=== PATIENT | female | born 1990 | race American Indian/Alaskan Native ===

== ENCOUNTER 2020-07-05 10:52 | Emergency (ER) | payer BC ==
[2020-07-05 11:07] VITALS: BP 119/83; PULSE 82; TEMP 99.2; BMI 23.3
[2020-07-05] MEDS ORDERED: ACETAMINOPHEN 325 MG TABLET (FP) PO ONE (11:16)
[2020-07-05] MEDS ORDERED: ACETAMINOPHEN 325 MG TABLET (FP) ONE (11:18)
--- NOTE | 2020-07-05 11:21 | PDOC ---
History of Present Illness - General Chief Complaint: Weakness Stated Complaint: RIGHT CALF WEAKNESS AND CRAMP Time Seen by Provider: 07/05/20 10:55 History Source: Patient Exam Limitations: No Limitations - History of Present Illness Initial Comments: 07/05/20 11:16 30-year-old female currently on Clomid for fertility treatment approximately 1 month here today complaining of right calf pain. Patient states that she has been noticing periodic spasms in her right calf also felt when she was driving a car it seemed to tire denies any chest pain or shortness of breath no fevers no chills no trauma no other current complaints called her OB certified medical asst who suggested she come to the ER for a Doppler to make sure there is no blood clot no history of previous blood clots no other current complaints Past History - Medical History Allergies/Adverse Reactions: Allergies Allergy/AdvReac Type Severity Reaction Status Date / Time No Known Allergies Allergy Unverified 07/05/20 10:55 Home Medications: Ambulatory Orders Clomiphene Citrate 50 mg PO ASDIR 07/05/20 COPD: No Other medical history: DENIES - Surgical History Appendectomy: Yes - Reproductive History Is Patient Now?: No - Psycho-Social/Smoking History Smoking History: Never smoked Information on smoking cessation initiated: No - Substance Abuse Hx (Audit-C & DAST Scrn) How often the patient has a drink containing alcohol: Never Score: In Men: 4 or > Positive; In Women: 3 or > Positive: 0 Screen Result (Pos requires Nsg. Audit-10AR): Negative In the last yr the pt used illegal drug/Rx for NonMed reason: No Score: Yes response is considered Positive: 0 Screen Result (Positive result requires Nsg. DAST-10): Negative Review of Systems - Review of Systems Constitutional: No: Chills Respiratory: No: Cough, Orthopnea, Shortness of Breath Cardiac (ROS): No: Chest Pain Musculoskeletal: Yes: Muscle Pain Integumentary: No: Bruising, Change in Color Neurological: No: Headache, Numbness, Paresthesia All Other Systems: Reviewed and Negative *Physical Exam - Vital Signs Last Vital Signs Temp Pulse Resp BP Pulse Ox 99.2 F 82 16 119/83 100 07/05/20 10:54 07/05/20 10:54 07/05/20 10:54 07/05/20 10:54 07/05/20 10:54 - Physical Exam 07/05/20 11:19 Awake alert no acute distress lungs are clear bilaterally heart is regular with any murmurs rubs or gallops abdomen is soft and nontender extremities are warm well perfused there is some right posterior calf tenderness no noted phlebitis or varicosities. Strength testing of bilateral lower extremities is 5 out of 5 with hip flexion extension knee flexion extension dorsiflexion plantarflexion. Sensation is intact. Patient has no palpable midline spinal tenderness. ED Treatment Course - LABORATORY CBC & Chemistry Diagram: 07/05/20 11:29 07/05/20 11:16 - RADIOLOGY Radiology Studies Ordered: Category Date Time Status DUPLEX VASCUL US-1 LEG [US] Stat Ultrasound 07/05/20 11:16 Ordered Medical Decision Making - Medical Decision Making 07/05/20 11:20 30-year-old female currently on Clomid here with right calf pain differential includes muscle spasm secondary to dehydration electrolyte instability DVT versus muscle strain. Plan Tylenol for her pain basic test Doppler and basic labs 07/05/20 12:46 Patient's Doppler studies negative for DVT electrolytes are normal labs unremarkable UCG is negative. Will discharge home told to take Motrin for her pain encourage hydration follow-up with her primary care doctor return for any problems or concerns should she have persistent symptoms in 1 week recommend repeat ultrasound Discharge - Discharge Information Problems reviewed: Yes Clinical Impression/Diagnosis: Muscle cramp Condition: Improved Disposition: HOME - Admission No - Follow up/Referral Referrals: Rich Saenz MD [Primary Care Provider] - - Patient Discharge Instructions Patient Printed Discharge Instructions: DI for Muscle Spasm Additional Instructions: Your ultrasound is negative for any acute blood clot. Your labs including basic blood counts and electrolyte in addition to liver function are normal today. You should follow-up with your regular doctor. For your pain in your calf you can take ibuprofen 400 mg every 8 hours. Your test is negative be sure to drink plenty of water and as this can contribute to muscle cramping. Return for any sudden onset weakness or any concerns. If you have persistent pain beyond 1 week he may consider repeat ultrasound at that time - Post Discharge Activity
[2020-07-05 11:34] LABS: BASO % 0.9 % (0-2.0); HEMATOCRIT 39.5 % (32.4-45.2); HEMOGLOBIN 13.5 GM/dl (10.7-15.3); LYMPH % 41.9 % (8-40); MCH 30.6 pg (25.7-33.7); MCHC 34.2 g/dl (32.0-36.0); MEAN CELL VOLUME 89.6 fl (80-96); MEAN PLT VOLUME 8.6 fl (7.5-11.1); MONO % 7.2 % (3.8-10.2); PLATELET COUNT 242 K/MM3 (134-434); RBC 4.41 M/mm3 (3.60-5.2); RDW 12.7 % (11.6-15.6); WHITE BLOOD COUNT 5.9 K/mm3 (4.0-10.8)
[2020-07-05 11:59] LABS: ALBUMIN 3.9 g/dl (3.4-5.0); BILIRUBIN,TOTAL 0.5 mg/dl (0.2-1); CALCIUM 8.5 mg/dl (8.5-10); CREATININE 0.6 mg/dl (0.55-1.3); POTASSIUM 3.7 mmol/L (3.5-5.1); TOT PROT 6.8 g/dl (6.4-8.2)
== END 2020-07-05 13:16 | disposition home or self-care (01) ==
LOC: FER 10:52
DX: R25.2 Cramp and spasm (principal)
CPT/HCPCS: 36415; 80053; 84703; 85025; 93971-TC; 99283-25

== ENCOUNTER 2021-12-05 12:43 | Emergency (ER) | payer OTHER ==
[2021-12-05 13:14] VITALS: BP 114/69; PULSE 72; TEMP 99.1; BMI 23.8
[2021-12-05] MEDS ORDERED: ACETAMINOPHEN 1000 MG/100 ML BAG IVPB ONE (14:05)
[2021-12-05] MEDS ORDERED: SODIUM CHLORIDE 0.9% 500 ML INFUS.BAG IV ONE (14:05)
[2021-12-05] MEDS ORDERED: METOCLOPRAMIDE HCL INJECTION 10 MG/2 ML VIAL IVPB ONE (14:05)
[2021-12-05] MEDS ORDERED: METOCLOPRAMIDE HCL INJECTION 10 MG/2 ML VIAL ONE (14:41)
[2021-12-05] MEDS ORDERED: ACETAMINOPHEN INJECTION 100 ML IVPB ONE (14:41)
== END 2021-12-05 19:22 | disposition home or self-care (01) ==
LOC: FER 12:43
PROC: 3E0333Z Introduction of Anti-inflammatory into Peripheral Vein, Percutaneous Approach (ICD-10-PCS; principal; 2021-12-05)
PROC: 3E033GC Introduction of Other Therapeutic Substance into Peripheral Vein, Percutaneous Approach (ICD-10-PCS; 2021-12-05)
DX: O26.891 Other specified pregnancy related conditions, first trimester (principal); R51.9 Headache, unspecified; Z3A.10 10 weeks gestation of pregnancy
CPT/HCPCS: 81003; 99284-25

== ENCOUNTER 2022-06-11 18:05 | Inpatient (IN) | payer OTHER, BC ==
[2022-06-11] MEDS ORDERED: DEXTROSE 5%-LACTATED RINGERS 1,000 ML IV SCH ×2 (19:00→20:00)
[2022-06-11] MEDS: DEXTROSE 5%-LACTATED RINGERS 1,000 ML IV SCH (23:00)
[2022-06-11 23:43] LABS: BASO % 0.4 % (0-2.0); EOS % 1.6 % (0-4.5); HEMATOCRIT 38.8 % (32.4-45.2); HEMOGLOBIN 13.9 GM/dL (10.7-15.3); LYMPH % 33.2 % (8-40); MCH 33.3 pg (25.7-33.7); MEAN CELL VOLUME 92.5 fl (80-96); MEAN PLT VOLUME 7.7 fl (7.5-11.1); MONO % 8.3 % (3.8-10.2); NEUT % 56.5 % (42.8-82.8); PLATELET COUNT 202 10^3/uL (134-434); RBC 4.19 M/mm3 (3.60-5.2); RDW 13.5 % (11.6-15.6); WHITE BLOOD COUNT 8.5 K/mm3 (4.0-10.0)
[2022-06-12 00:16] LABS: CALCIUM 8.7 mg/dL (8.5-10.1)
[2022-06-12 00:17] LABS: BLOOD UREA NITROGEN 6.2 mg/dL (7-18)
[2022-06-12 00:20] LABS: CREATININE 0.5 mg/dL (0.55-1.3)
[2022-06-12 00:48] LABS: INR 1.06 (0.83-1.09); PROTHROMBIN TIME (PATIENT) 12.2 SEC (9.7-13.0)
[2022-06-12 00:55] VITALS: BMI 25.4
[2022-06-12] MEDS ORDERED: OXYTOCIN 30 UNITS in 0.9% NS 30 UNIT/500 ML INFUS.BAG IVPB ONE (04:13)
[2022-06-12] MEDS ORDERED: OXYTOCIN 30 UNITS in 0.9% NS 30 UNIT/500 ML INFUS.BAG IVPB SCH (04:30)
[2022-06-12] MEDS: DEXTROSE 5%-LACTATED RINGERS 1,000 ML IV SCH ×2 (06:30→14:25)
[2022-06-12] MEDS ORDERED: BUTORPHANOL TARTRATE 1 MG/ML VIAL IVPUSH PRN (07:39)
[2022-06-12] MEDS ORDERED: PROMETHAZINE HCL 25 MG/1 ML VIAL IVPB ONE (07:45)
[2022-06-12] MEDS ORDERED: morphine SULFATE/PF 1 MG/2 ML (2cc Syringe - QUVA) EP ONE (16:51)
[2022-06-12] MEDS ORDERED: ONDANSETRON 4 MG/2 ML VIAL IVPUSH PRN (16:51)
[2022-06-12] MEDS ORDERED: CITRIC ACID/SODIUM CITRATE 30 ML UNIT-DOSE CUP PO ONE (19:38)
[2022-06-12] MEDS ORDERED: ELECTROLYTE-148 SOLN 1,000 ML IV SCH (19:45)
[2022-06-12] MEDS ORDERED: ceFAZolin SODIUM 1 GM VIAL ONE ×2 (20:51→21:09)
[2022-06-12] MEDS ORDERED: SODIUM CHLORIDE 0.9% P/F 10 ML VIAL IJ ONE (20:51)
[2022-06-12] MEDS ORDERED: morphine SULFATE/PF 1 MG/2 ML (2cc Syringe - QUVA) ONE (20:51)
[2022-06-12] MEDS ORDERED: OXYTOCIN 10 UNITS/ML VIAL ONE (21:11)
[2022-06-12] MEDS ORDERED: ONDANSETRON 4 MG/2 ML VIAL ONE (21:29)
[2022-06-12] MEDS ORDERED: BISACODYL 10 MG SUPP.RECT RC PRN (22:03)
[2022-06-12] MEDS ORDERED: BENZOCAINE 20% 57 GM BOTTLE TP PRN (22:03)
[2022-06-12] MEDS ORDERED: METHYLERGONOVINE MALEATE 0.2 MG/1 ML AMP IM PRN (22:03)
[2022-06-12] MEDS ORDERED: oxyCODONE HCL 5 MG TABLET PO PRN (22:03)
[2022-06-12] MEDS ORDERED: BENZOCAINE 28 GM HEMORRHOIDAL OINTMENT TP PRN (22:03)
[2022-06-12] MEDS ORDERED: WITCH HAZEL 50% (TUCKS) 40 PAD/JAR PAD TP PRN (22:03)
[2022-06-12] MEDS ORDERED: IBUPROFEN 800 MG/8 ML IJ IVPB PRN (22:05)
[2022-06-12 22:06] LABS: CORD BASE EXCESS -1.9 mmol/L (0-2); CORD HCO3 24.8 mmHg (20-29); CORD pH 7.322 (7.14-7.44)
[2022-06-12] MEDS ORDERED: OXYTOCIN 20 UNITS in 0.9% NS 20 UNIT/1,000 ML INFUS.BAG IV SCH (22:15)
[2022-06-12] MEDS ORDERED: MEPERIDINE HCL 50 MG/ML VIAL IVPUSH ONE (22:17)
[2022-06-12] MEDS ORDERED: OXYTOCIN 20 UNITS in 0.9% NS 20 UNIT/1,000 ML INFUS.BAG IV ONE (22:27)
[2022-06-13] MEDS: CEFAZOLIN SODIUM 2 GM in DEXTROSE 5%-WATER 100 ML IVPB SCH ×3 (01:50→17:20)
[2022-06-13] MEDS ORDERED: ceFAZolin 2 GRAM PREMIX BAG IVPB SCH (02:00)
[2022-06-13] MEDS: DEXTROSE 5%-LACTATED RINGERS 1,000 ML IV SCH (09:11)
[2022-06-13 09:28] LABS: BASO % 0.4 % (0-2.0); EOS % 0.1 % (0-4.5); HEMATOCRIT 34.8 % (32.4-45.2); HEMOGLOBIN 12.3 GM/dL (10.7-15.3); LYMPH % 14.7 % (8-40); MCH 32.8 pg (25.7-33.7); MCHC 35.4 g/dl (32.0-36.0); MEAN CELL VOLUME 92.7 fl (80-96); MEAN PLT VOLUME 8.2 fl (7.5-11.1); MONO % 6.3 % (3.8-10.2); NEUT % 78.5 % (42.8-82.8); PLATELET COUNT 185 10^3/uL (134-434); RBC 3.75 M/mm3 (3.60-5.2); RDW 13.3 % (11.6-15.6); WHITE BLOOD COUNT 14.8 K/mm3 (4.0-10.0)
[2022-06-13] MEDS: ENOXAPARIN NA (PORCINE) 40 MG/0.4 ML DISP.SYRIN SQ SCH (09:42)
[2022-06-13] MEDS: ACETAMINOPHEN 325 MG TABLET (FP) PO PRN (16:56)
[2022-06-13] MEDS ORDERED: SENNOSIDES/DOCUSATE COMBO (SENNA PLUS) TABLET (UD) PO PRN (22:00)
[2022-06-13] MEDS: IBUPROFEN 600 MG TABLET (FP) PO PRN (22:29)
[2022-06-14] MEDS: ACETAMINOPHEN 325 MG TABLET (FP) PO PRN ×2 (08:29→23:19)
[2022-06-14] MEDS: ENOXAPARIN NA (PORCINE) 40 MG/0.4 ML DISP.SYRIN SQ SCH (09:09)
[2022-06-14] MEDS ORDERED: DIPHTH,PERTUSS(ACELL),TET 0.5 ML DISP.SYRIN IM ONE (10:00)
[2022-06-14] MEDS: IBUPROFEN 600 MG TABLET (FP) PO PRN ×2 (15:27→21:07)
[2022-06-15] MEDS: IBUPROFEN 600 MG TABLET (FP) PO PRN ×3 (08:01→19:21)
[2022-06-15] MEDS: ENOXAPARIN NA (PORCINE) 40 MG/0.4 ML DISP.SYRIN SQ SCH (09:51)
[2022-06-15] MEDS: ACETAMINOPHEN 325 MG TABLET (FP) PO PRN (22:57)
[2022-06-16] MEDS: IBUPROFEN 600 MG TABLET (FP) PO PRN ×2 (04:42→09:12)
[2022-06-16] MEDS: ENOXAPARIN NA (PORCINE) 40 MG/0.4 ML DISP.SYRIN SQ SCH (09:12)
[2022-06-16 12:01] VITALS: BP 127/74; PULSE 62; RESP 16; TEMP 98.3
== END 2022-06-16 19:35 | disposition home or self-care (01) | DRG 788 ==
LOC: JDEL 18:05 → JLDR 22:55 → J3W 06-12 23:44
PROVIDERS: ADMIT Obstetrics & Gynecology; ATTEND Obstetrics & Gynecology
PROC: 10D00Z1 Extraction of Products of Conception, Low, Open Approach (ICD-10-PCS; principal; 2022-06-12)
DX: O76 Abnormality in fetal heart rate and rhythm complicating labor and delivery (principal); O62.0 Primary inadequate contractions; Z3A.37 37 weeks gestation of pregnancy; Z37.0 Single live birth
CPT/HCPCS: 36415; 36600; 59025; 76819-TC; 80048; 82803; 85025; 85610; 85730; 86780; 86850; 86900; 86901; 88307-TC; C9803-CS; J2175; U0003; U0005

== ENCOUNTER 2024-05-19 09:35 | Emergency (ER) | payer OTHER ==
[2024-05-19 09:42] VITALS: BP 135/88; PULSE 86; RESP 18; TEMP 98.2; BMI 25.6
[2024-05-19] MEDS ORDERED: METHOCARBAMOL 500 MG TABLET ONE (10:18)
[2024-05-19] MEDS ORDERED: LIDOCAINE 5% TOPICAL PATCH ONE (10:18)
[2024-05-19] MEDS: LIDOCAINE 5% TOPICAL PATCH TP ONE (10:25)
[2024-05-19] MEDS: METHOCARBAMOL 500 MG TABLET PO ONE (10:25)
[2024-05-19] MEDS ORDERED: KETOROLAC TROMETHAMINE 30 MG/1 ML VIAL ONE (11:05)
[2024-05-19] MEDS: KETOROLAC TROMETHAMINE 15 MG/ML VIAL IM ONE (11:10)
[2024-05-19] MEDS ORDERED: LIDOCAINE PATCH REMOVAL MC SCH (22:00)
== END 2024-05-19 12:15 | disposition home or self-care (01) ==
LOC: FER 09:35
PROC: 3E0133Z Introduction of Anti-inflammatory into Subcutaneous Tissue, Percutaneous Approach (ICD-10-PCS; principal; 2024-05-19)
DX: M54.42 Lumbago with sciatica, left side (principal)
CPT/HCPCS: 84703; 99284-25

== ENCOUNTER 2024-06-08 11:54 | Emergency (ER) | payer OTHER ==
[2024-06-08 12:58] VITALS: BP 137/93; PULSE 81; RESP 20; TEMP 98.2; BMI 25.2
[2024-06-08] MEDS ORDERED: METHOCARBAMOL 500 MG TABLET ONE (13:08)
[2024-06-08] MEDS ORDERED: KETOROLAC TROMETHAMINE 30 MG/1 ML VIAL ONE (13:09)
[2024-06-08] MEDS: KETOROLAC TROMETHAMINE 30 MG/1 ML VIAL IM ONE (13:12)
[2024-06-08] MEDS: METHOCARBAMOL 500 MG TABLET PO ONE (13:12)
== END 2024-06-08 13:19 | disposition home or self-care (01) ==
LOC: FER 11:54
PROC: 3E0133Z Introduction of Anti-inflammatory into Subcutaneous Tissue, Percutaneous Approach (ICD-10-PCS; principal; 2024-06-08)
DX: M54.50 Low back pain, unspecified (principal)
CPT/HCPCS: 84703; 99284-25

== ENCOUNTER 2024-07-16 16:06 | Emergency (ER) | payer OTHER ==
[2024-07-16 16:20] VITALS: BP 139/74; PULSE 70; RESP 18; TEMP 98.4; BMI 25.2
[2024-07-16] MEDS ORDERED: KETOROLAC TROMETHAMINE 30 MG/1 ML VIAL ONE (17:07)
[2024-07-16] MEDS: KETOROLAC TROMETHAMINE 30 MG/1 ML VIAL IM ONE (17:15)
== END 2024-07-16 17:45 | disposition home or self-care (01) ==
LOC: FER 16:06
PROC: 3E0333Z Introduction of Anti-inflammatory into Peripheral Vein, Percutaneous Approach (ICD-10-PCS; principal; 2024-07-16)
DX: S93.402A Sprain of unspecified ligament of left ankle, initial encounter (principal); S93.602A Unspecified sprain of left foot, initial encounter; X50.1XXA Overexertion from prolonged static or awkward postures, initial encounter
CPT/HCPCS: 73610-TC-LT-FY; 73630-TC-LT; 99284-25

== ENCOUNTER 2024-07-21 11:09 | Emergency (ER) | payer OTHER ==
[2024-07-21 11:13] VITALS: BP 155/98; PULSE 71; RESP 18; TEMP 98.3; BMI 25.2
== END 2024-07-21 13:08 | disposition home or self-care (01) ==
LOC: JERFT 11:09
DX: M54.32 Sciatica, left side (principal); M79.662 Pain in left lower leg
CPT/HCPCS: 93971-TC; 99284-25